=== PATIENT | male | born 1960 | race Caucasian/White ===

== ENCOUNTER 2021-04-18 08:32 | Observation (INO) | payer BC, OTHER ==
[2021-04-18 09:05] LABS: #Basophils 0.1 10x3/uL (0.0-0.2); #Eosinphils 0.1 10x3/uL (0.0-0.5); #Neutrophils 9.9 10x3/uL (1.5-8.4); %Basophils 0.5 % (0.0-2.0); %Eosinophils 0.4 % (0.0-6.0); %Lymphocytes 12.8 % (18.0-47.0); %Monocytes 7.6 % (0.0-10.0); %Neutrophils 78.2 % (40.0-75.0); Hemoglobin 14.6 g/dL (13.5-17.5); Mean Corpuscular HGB CONC 33.5 g/dL (32.0-36.0); Mean Corpuscular Hemoglobin 28.9 pg (27.0-33.0); Mean Corpuscular Volume 86.2 fl (81.2-95.1); Mean Platelet Volume 10.3 fl (7.4-10.4); Platelet Count 244 10x3/uL (150-450); RBC Distribution Width 13.1 % (11.5-14.5); Red Blood Cell (RBC) Count 5.06 10x6/uL (4.32-5.72); White Blood Cell (WBC) Count 12.7 10x3/uL (3.5-10.5)
[2021-04-18 09:16] LABS: ALT (SGPT) 15 U/L (8-55); AST (SGOT) 19 U/L (5-34); Albumin 4.1 g/dL (3.4-4.8); Alkaline Phosphatase 102 U/L (40-110); Anion Gap 14 mmol/L (10-20); BUN (Urea Nitrogen) 7 mg/dL (8.4-25.7); Bilirubin, Total 0.3 mg/dL (0.2-1.2); Calc. Creatinine Clearance 0 mL/min (70-130); Calcium 8.6 mg/dL (7.8-10.44); Carbon Dioxide 23 mmol/L (23-31); Chloride 103 mmol/L (98-107); Globulin 2.7 g/dL (2.4-3.5); Glucose 182 mg/dL (80-115); Magnesium 1.8 mg/dL (1.6-2.6); Potassium 3.5 mmol/L (3.5-5.1); Protein, Total 6.8 g/dL (5.8-8.1); Sodium 136 mmol/L (136-145)
[2021-04-18 09:41] LABS: CKMB 4.6 ng/mL (0-6.6)
[2021-04-18 10:48] VITALS: BMI 28.1
[2021-04-18] MEDS ORDERED: Nitroglycerin 0.4 MG TAB (25 Tab Bottle) SL PRN (12:30)
[2021-04-18] MEDS ORDERED: Aspirin Chewable 81 MG TAB PO SCH (12:45)
[2021-04-18] MEDS: Nicotine 21 MG PATCH TD SCH (14:17)
[2021-04-18 15:32] LABS: SARS-CoV-2 NAA Rapid Test Not Detected (NotDetected)
[2021-04-18 18:55] LABS: Troponin I 9.313 ng/mL (< 0.028)
[2021-04-18] MEDS ORDERED: Enoxaparin Sodium 80 MG/0.8 ML SYRINGE SC SCH (20:00)
[2021-04-18] MEDS ORDERED: predniSONE 20 MG TAB PO SCH (20:00)
[2021-04-18] MEDS: Metoprolol Tartrate 25 MG TAB PO SCH (20:47)
[2021-04-18] MEDS: Atorvastatin Calcium 20 MG TAB PO SCH (20:47)
[2021-04-18] MEDS: Nitroglycerin 2% Ointment 1 INCH/1 GM Packet TOP SCH (23:35)
[2021-04-19 05:43] LABS: #Monocytes 0.3 10x3/uL (0.0-1.1); #Neutrophils 6.5 10x3/uL (1.5-8.4); %Basophils 0.2 % (0.0-2.0); %Eosinophils 0.1 % (0.0-6.0); %Lymphocytes 15.9 % (18.0-47.0); %Monocytes 3.2 % (0.0-10.0); %Neutrophils 80.1 % (40.0-75.0); Hemoglobin 13.9 g/dL (13.5-17.5); Mean Corpuscular HGB CONC 32.9 g/dL (32.0-36.0); Mean Corpuscular Volume 87.9 fl (81.2-95.1); Mean Platelet Volume 10.9 fl (7.4-10.4); Platelet Count 227 10x3/uL (150-450); RBC Distribution Width 13.1 % (11.5-14.5); White Blood Cell (WBC) Count 8.1 10x3/uL (3.5-10.5)
[2021-04-19 05:54] LABS: Anion Gap 11 mmol/L (10-20); BUN (Urea Nitrogen) 8 mg/dL (8.4-25.7); Calc. Creatinine Clearance 91 mL/min (70-130); Carbon Dioxide 25 mmol/L (23-31); Cardiac Risk 5.9 (Less than 4.5); Chloride 107 mmol/L (98-107); Cholesterol 207 mg/dl (< 200 Desired); Glucose 143 mg/dL (80-115); HDL Cholesterol 35 mg/dL (>60 Neg Risk); LDL Cholesterol, Calculated 146 mg/dL; Potassium 4.5 mmol/L (3.5-5.1); Sodium 138 mmol/L (136-145); Triglycerides 129 mg/dL (Less than 150)
[2021-04-19] MEDS ORDERED: Sodium Chloride 0.9% 1,000 ML IV SCH (06:00)
[2021-04-19] MEDS: Metoprolol Tartrate 25 MG TAB PO SCH ×2 (06:40→20:39)
[2021-04-19] MEDS ORDERED: diphenhydrAMINE 12.5 MG/5 ML UDCUP PO SCH (07:00)
[2021-04-19] MEDS ORDERED: predniSONE 20 MG TAB PO SCH (07:00)
[2021-04-19] MEDS: Nitroglycerin 2% Ointment 1 INCH/1 GM Packet TOP SCH (07:43)
[2021-04-19] MEDS ORDERED: Nitroglycerin 50 MG/250 ML BOT 250 ML ONE (07:54)
[2021-04-19] MEDS ORDERED: Heparin 10,000 UNITS/ 10 ML VIAL ONE (07:54)
[2021-04-19] MEDS ORDERED: Verapamil 5 MG/2 ML VIAL ONE ×2 (07:54)
[2021-04-19] MEDS ORDERED: Bivalirudin 250 MG VIAL ONE ×2 (07:55→09:39)
[2021-04-19] MEDS ORDERED: Adenosine 6 MG/2 ML VIAL ONE (07:55)
[2021-04-19] MEDS ORDERED: Sodium Chloride 0.9% 1,000 ML ONE (07:56)
[2021-04-19] MEDS ORDERED: Lidocaine 1% PF 5 ML VIAL ONE (08:02)
[2021-04-19] MEDS ORDERED: Fentanyl 100 MCG/2 ML VIAL ONE (08:17)
[2021-04-19] MEDS ORDERED: Midazolam HCl 2 mg/2 ml Vial ONE ×2 (08:17→08:47)
[2021-04-19] MEDS ORDERED: TICAGRELOR 90 MG TABLET ONE (09:08)
[2021-04-19] MEDS: Aspirin Chewable 81 MG TAB PO SCH (10:45)
[2021-04-19] MEDS: Levothyroxine Sodium 100 MCG TAB PO SCH (10:45)
[2021-04-19] MEDS: Sodium Chloride 0.9% 1,000 ML IV SCH ×2 (11:02→15:50)
[2021-04-19] MEDS: Nicotine 21 MG PATCH TD SCH (11:23)
[2021-04-19] MEDS: Atorvastatin Calcium 20 MG TAB PO SCH (20:39)
[2021-04-19] MEDS: TICAGRELOR 90 MG TABLET PO SCH (20:39)
[2021-04-20] MEDS: Sodium Chloride 0.9% 1,000 ML IV SCH ×2 (04:20→13:40)
[2021-04-20 04:35] LABS: #Basophils 0.1 10x3/uL (0.0-0.2); #Eosinphils 0.1 10x3/uL (0.0-0.5); #Monocytes 0.9 10x3/uL (0.0-1.1); %Basophils 0.5 % (0.0-2.0); %Eosinophils 0.8 % (0.0-6.0); %Lymphocytes 40.7 % (18.0-47.0); %Monocytes 7.1 % (0.0-10.0); %Neutrophils 50.4 % (40.0-75.0); Hemoglobin 13.9 g/dL (13.5-17.5); Mean Corpuscular HGB CONC 33.2 g/dL (32.0-36.0); Mean Corpuscular Volume 87.3 fl (81.2-95.1); Mean Platelet Volume 10.5 fl (7.4-10.4); Platelet Count 234 10x3/uL (150-450); RBC Distribution Width 13.3 % (11.5-14.5); White Blood Cell (WBC) Count 11.9 10x3/uL (3.5-10.5)
[2021-04-20 04:50] LABS: ALT (SGPT) 17 U/L (8-55); AST (SGOT) 29 U/L (5-34); Albumin 3.7 g/dL (3.4-4.8); Alkaline Phosphatase 76 U/L (40-110); Anion Gap 13 mmol/L (10-20); BUN (Urea Nitrogen) 10 mg/dL (8.4-25.7); Bilirubin, Total 0.4 mg/dL (0.2-1.2); Calc. Creatinine Clearance 83 mL/min (70-130); Calcium 8.7 mg/dL (7.8-10.44); Carbon Dioxide 27 mmol/L (23-31); Chloride 105 mmol/L (98-107); Globulin 2.8 g/dL (2.4-3.5); Glucose 99 mg/dL (80-115); Magnesium 1.9 mg/dL (1.6-2.6); Phosphorus 3.2 mg/dL (2.3-4.7); Potassium 3.6 mmol/L (3.5-5.1); Protein, Total 6.5 g/dL (5.8-8.1); Sodium 141 mmol/L (136-145)
[2021-04-20 05:06] LABS: Platelet Morphology Comment Appears Adequate; RBC Morphology Normal
[2021-04-20] MEDS: Levothyroxine Sodium 100 MCG TAB PO SCH (06:54)
[2021-04-20] MEDS: Metoprolol Tartrate 25 MG TAB PO SCH (09:28)
[2021-04-20] MEDS: Aspirin Chewable 81 MG TAB PO SCH (09:28)
[2021-04-20] MEDS: TICAGRELOR 90 MG TABLET PO SCH (09:29)
[2021-04-20 12:11] VITALS: BP 114/69; TEMP 99.1
[2021-04-20] MEDS: Nicotine 21 MG PATCH TD SCH (13:00)
== END 2021-04-20 14:11 | disposition home or self-care (01) ==
LOC: CSHERS 08:32 → CSHTELE 10:02
PROVIDERS: ADMIT Family Medicine; ATTEND Family Medicine
DX: I21.4 Non-ST elevation (NSTEMI) myocardial infarction (principal); I25.10 Atherosclerotic heart disease of native coronary artery without angina pectoris; E78.5 Hyperlipidemia, unspecified; E03.9 Hypothyroidism, unspecified; Z87.891 Personal history of nicotine dependence; Z20.822 Contact with and (suspected) exposure to COVID-19
CPT/HCPCS: 36415; 71045; 80048; 80053; 80061; 82553; 83735; 83880; 84100; 84443; 84484; 85025; 92928; 92978; 92979; 93005; 93010; 93306; 93458; 96372; 99152; 99153; C1713; C1753; C1874; C1887; C9600; G0378; J0153; J0583; J1644; J1650; J2250; J3010; J7050; J7512; Q0163; U0002